=== PATIENT | male | born 1975 | race Caucasian/White ===

== ENCOUNTER 2016-09-20 01:03 | Emergency (ER) | payer SELFPAY ==
[2016-09-20] MEDS ORDERED: ALBUTEROL HFA INH ONE (06:56)
[2016-09-20] MEDS ORDERED: KETOROLAC 60 MG/2 ML VIAL IM ONE (07:03)
[2016-09-20] MEDS ORDERED: AZITHROMYCIN 250 MG TAB ONE (07:03)
== END 2016-09-20 07:12 | disposition home or self-care (01) ==
LOC: ER 01:03
DX: J15.9 Unspecified bacterial pneumonia (principal); F17.210 Nicotine dependence, cigarettes, uncomplicated
CPT/HCPCS: 36415; 71020; 80053; 85025; 94640; 96372